=== PATIENT | male | born 1960 | race Two or more races ===

== ENCOUNTER 2019-01-28 13:19 | Emergency (ER) | payer MEDICAID ==
[~2019-01-28] VITALS: Ht 193 cm; Wt 100.0 kg
[2019-01-28] MEDS ORDERED: SULFAMETHOX/TRIMETH DS 800-160 MG/TABLET PO ONE (15:15)
[2019-01-28] MEDS ORDERED: CEPHALEXIN MONOHYDRATE 500 MG CAPSULE PO ONE (15:15)
[2019-01-28 15:20] VITALS: BP 125/78
== END 2019-01-28 15:45 | disposition home or self-care (01) ==
LOC: EMS 13:21
DX: L03.116 Cellulitis of left lower limb (principal); L03.114 Cellulitis of left upper limb; F15.90 Other stimulant use, unspecified, uncomplicated

== ENCOUNTER 2019-02-03 04:27 | Emergency (ER) | payer MEDICAID ==
[~2019-02-03] VITALS: Ht 193 cm; Wt 102.3 kg
[2019-02-03] MEDS ORDERED: SULF1TAB42 PO (04:54)
[2019-02-03] MEDS ORDERED: CEPH500 PO (04:54)
[2019-02-03 05:05] VITALS: BP 133/99
[2019-02-03] MEDS ORDERED: FAMOTIDINE 20 MG TABLET PO ONE (05:15)
[2019-02-03] MEDS ORDERED: DiphenhydrAMINE HCL 50 MG/ML VIAL IM ONE (05:15)
[2019-02-03] MEDS ORDERED: PredniSONE 20 MG TABLET PO ONE (05:15)
== END 2019-02-03 05:51 | disposition home or self-care (01) ==
LOC: EMS 04:33
DX: T78.40XA Allergy, unspecified, initial encounter (principal); F15.10 Other stimulant abuse, uncomplicated; F19.90 Other psychoactive substance use, unspecified, uncomplicated; X58.XXXA Exposure to other specified factors, initial encounter
CPT/HCPCS: 96372; 99283; J1200; J7512

== ENCOUNTER 2019-11-23 03:19 | Emergency (ER) | payer MEDICAID ==
[~2019-11-23] VITALS: Ht 193 cm; Wt 100.0 kg
[~2019-11-23 03:19] MED LIST: CEPH500 PO; SULF1TAB42 PO
[2019-11-23] MEDS ORDERED: SULFAMETHOX/TRIMETH DS 800-160 MG/TABLET PO ONE (04:30)
[2019-11-23] MEDS ORDERED: CEPHALEXIN MONOHYDRATE 500 MG CAPSULE PO ONE (04:30)
[2019-11-23 04:45] VITALS: BP 127/78
== END 2019-11-23 05:13 | disposition left against medical advice (07) ==
LOC: EMS 03:19
DX: L02.416 Cutaneous abscess of left lower limb (principal); L03.116 Cellulitis of left lower limb; F19.90 Other psychoactive substance use, unspecified, uncomplicated

== ENCOUNTER 2020-05-22 21:58 | Emergency (ER) | payer MEDICAID ==
[~2020-05-22] VITALS: Ht 193 cm; Wt 100.0 kg
[2020-05-23] MEDS ORDERED: CLINDAMYCIN PHOS 150 MG/ML 4 ML VIAL IM ONE (00:15)
[2020-05-23 00:30] VITALS: BP 136/82
[2020-05-23 01:15] LABS: HEMATOCRIT 39.9 % (41-53); HEMOGLOBIN 13.2 g/dL (13.5-17.5); MEAN CORPUSCULAR HGB CONC 33.1 G/dL (31.0-37.0); MEAN CORPUSCULAR VOLUME 94 fL (80-100); PLATELET COUNT (AUTO) 217 K/uL (150-450); RED BLOOD CELL COUNT(AUTO) 4.26 MIL/uL (4.50-5.90); RED CELL DISTRIBUTION WIDTH 15.8 % (11.5-14.5)
[2020-05-23 01:16] LABS: BASOPHILS % (AUTO) 0.8 % (0.0-2.0); EOSINOPHILS % (AUTO) 4.6 % (1.0-6.0); ERYTHROCYTE SEDIMENTATION RATE 68 MM/HR (0-15); LYMPHOCYTES # (AUTO) 1.5 K/uL (1.0-4.8); LYMPHOCYTES % (AUTO) 21.6 % (22.0-44.0); MONOCYTES # (AUTO) 0.6 K/uL (0.1-1.0); MONOCYTES % (AUTO) 8.4 % (2.0-9.0); NEUTROPHILS # (AUTO) 4.5 K/uL (1.8-7.7); NEUTROPHILS % (AUTO) 64.6 % (40.0-70.0)
[2020-05-23 01:19] LABS: ANION GAP 11 mmol/L (8-16); CARBON DIOXIDE 26 mmol/L (22-29); CHLORIDE 103 mmol/L (98-107); GLUCOSE,RANDOM 91 mg/dL (70-110); POTASSIUM 4.2 mmol/L (3.5-5.1); SODIUM SERUM 140 mmol/L (136-145)
[2020-05-23 01:21] LABS: CREATININE 1.05 mg/dL (0.60-1.30); GLOMERULAR FILTR. RATE CALC > 60 mL/min (>60); UREA NITROGEN, BLOOD 20 mg/dL (7-18)
[2020-05-23 01:22] LABS: ALANINE AMINOTRANSFERASE 31 U/L (12-78); ALBUMIN 3.7 g/dL (3.4-5.0); ALKALINE PHOSPHATASE 86 U/L (46-116); ASPARTATE AMINOTRANSFERASE 30 U/L (15-37); BILIRUBIN,TOTAL 0.3 mg/dL (0.1-1.0); C-REACTIVE PROTEIN QUANT 4.12 mg/dL (0.00-0.30); CALCIUM, TOTAL 9.4 mg/dL (8.8-10.5); TOTAL PROTEIN, SERUM 8.9 g/dL (6.4-8.2)
== END 2020-05-23 01:19 | disposition home or self-care (01) ==
LOC: EMS 21:58
DX: L03.116 Cellulitis of left lower limb (principal); F17.210 Nicotine dependence, cigarettes, uncomplicated
CPT/HCPCS: 36415; 73590; 73630; 80053; 85025; 85651; 86140; 87070; 96372; 99284; J3490; 87205

== ENCOUNTER 2020-05-23 20:56 | Emergency (ER) | payer MEDICAID ==
[~2020-05-23] VITALS: Ht 193 cm; Wt 100.0 kg
[2020-05-23 20:58] VITALS: BP 123/72
== END 2020-05-23 22:00 | disposition left against medical advice (07) ==
LOC: EMS 20:59
DX: L02.91 Cutaneous abscess, unspecified (principal); Z53.21 Procedure and treatment not carried out due to patient leaving prior to being seen by health care provider